=== PATIENT | male | born 2000 | race Caucasian/White ===

== ENCOUNTER 2022-01-11 17:08 | Emergency (ER) | payer BC, SELFPAY ==
--- NOTE | ~2022-01-11 | XR_ITS ---
EXAMINATION: [id number] EXAM DATE: 01/11/2022 19:14 INDICATION: No known recent injury provided at this time. Pain of the cervical spine. TECHNIQUE: Cervical spine frontal, lateral, lateral swimmers, and open-mouth odontoid projections. There is no prior study for comparison. FINDINGS: There is no evidence of acute cervical fracture. The odontoid process is intact. Pre-dens space is normal. Prevertebral soft tissue is normal. There are no soft tissue abnormalities identi fied. Vertebral body and disc heights are well-maintained. The vertebral bodies are aligned. IMPRESSION: 1. Unremarkable cervical spine exam. Reviewed, dictated and finalized at location G. [facility]
[2022-01-11 17:41] VITALS: BP 133/81; PULSE 105; RESP 18; TEMP 36.7; O2SAT 100
--- NOTE | 2022-01-11 19:05 | ED.BACK ---
HPI - Back Pain/Injury General Chief Complaint: Back Pain/Injury Stated Complaint: rib pain Time Seen by Provider: 01/11/22 18:58 History of Present Illness HPI Narrative: 21-year-old male presents to the emergency room with acute onset of atraumatic right cervical spine pain that is aggravated when he moves his right arm. Pain has been present for 3 days. States pain began to move to the left side. Denies taking any [id number] medications to alleviate pain. Related Data Allergies Allergy/AdvReac Type Severity Reaction Status Date / Time No Known Allergies Allergy Verified 01/11/22 17:58 Review of Systems Review of Systems: CONSTITUTIONAL: Denies fever, chills, or sweats. EYES: Denies visual changes, redness, or discharge. ENT: Denies rhinorrhea, congestion, sore throat, or otalgia. CARDIOVASCULAR: Denies chest pain, palpitations, or edema. RESPIRATORY: Denies cough or dyspnea. GASTROINTESTINAL: Denies abdominal pain, nausea, vomiting, or diarrhea. GENITOURINARY: Denies dysuria or hematuria. SKIN: Denies rash or itching. MUSCULOSKELETAL: midline back pain. Denies joint pain, or myalgia. NEUROLOGIC: Denies headache, numbness, dizziness, or weakness. PSYCHIATRIC: Denies anxiety or depression. Exam Narrative: GENERAL: Well-appearing, well-nourished, and in no acute distress. HEAD: Normocephalic, atraumatic. EYES: PERRLA and EOMI. ENT: Nares clear, no rhinorrhea or epistaxis. Mucous membranes moist. Oropharynx without tonsillar hypertrophy exudate or other lesions. Bilateral TMs pearly benson nonbulging NECK: Supple. No adenopathy or masses. No carotid bruits or JVD CHEST: Clear to auscultation. No respiratory distress. No wheezes rales or rhonchi HEART: Regular rate and rhythm. No murmur heard. Normal peripheral pulses. ABDOMEN: Soft, nontender, nondistended, normal active bowel sounds. EXTREMITIES: Normal range of motion. No edema. SKIN: Warm, dry, no rash. NEURO: No focal deficits. Alert and oriented x3. PSYCH: Normal mood and affect. Back/Spine/Pelvis: Other: Midline posterior cervical tenderness with no step-offs. no obvious bony abnormality. Pain radiates into her right trapezius. Pain worse with moving shoulder with abduction abduction flexion extension. positive muscle spasms Course Course Emergency Course: C-spine plain films demonstrated no acute abnormalities. Patient given 500 mg of Robaxin states that pain is beginning to be relieved. Vital Signs Vital signs: Vital Signs Temperature 36.7 C 01/11/22 17:41 Pulse Rate 105 H 01/11/22 17:41 Respiratory Rate 18 01/11/22 17:41 Blood Pressure 133/81 01/11/22 17:41 Pulse Oximetry 100 01/11/22 17:41 Temperature 36.7 C 01/11/22 17:41 Pulse Rate 105 H 01/11/22 17:41 Respiratory Rate 18 01/11/22 17:41 Blood Pressure 133/81 01/11/22 17:41 Pulse Oximetry 100 01/11/22 17:41 MDM - Back Pain/Injury MDM Narrative Medical decision making narrative: C-spine plain images were normal. Suspect patient has just muscle spasms of the right trap muscles. Imaging Data Radiologist's impression: Impressions Cervical Spine X-Ray 01/11/22 19:18 IMPRESSION: 1. Unremarkable cervical spine exam. Discharge Plan Discharge Clinical Impression: Acute cervical myofascial strain Qualifiers: Encounter type: initial encounter Qualified Code(s): S16.1XXA - Strain of muscle, fascia and tendon at neck level, initial encounter Patient Disposition: Home, Self-Care Condition: Stable Instructions: Antibiotic Form, Acute Neck Pain (ED) Additional Instructions: Take Robaxin as prescribed. May supplement with Tylenol ibuprofen for any discomfort. Recommend stretching. Recommend heating pad. Follow-up with PCP in 2 to 3 days as needed. Prescriptions: New methocarbamol 500 mg tablet 500 mg PO TID Qty: 20 RF: 0 Follow-up/Referrals: PHYSICIAN,S[employer] [Primary Care Provider] -
[2022-01-11] MEDS: methocarbamoL 500 MG TABLET PO (19:14)
== END 2022-01-11 19:57 | disposition home or self-care (01) ==
PROVIDERS: Emergency Provider Nurse Practitioner Family
DX: S16.1XXA Strain of muscle, fascia and tendon at neck level, initial encounter (principal); X58.XXXA Exposure to other specified factors, initial encounter
CPT/HCPCS: 72040; 99283; A9270